=== PATIENT | female | born 1955 | race Caucasian/White ===

== ENCOUNTER 2019-10-18 17:02 | Emergency (ER) | payer BC, MEDICARE ==
[~2019-10-18] VITALS: Ht 162.6 cm; Wt 68.5 kg
[2019-10-18] MEDS ORDERED: LEVO-T25 MCG PO (17:13)
[2019-10-18 18:01] LABS: ABSOLUTE BASOPHILS 0.1 thou/uL (0.0-0.2); ABSOLUTE EOSINOPHILS 0.3 thou/uL (0.0-0.7); ABSOLUTE LYMPHOCYTES 2.7 thou/uL (0.8-5.3); ABSOLUTE MONOCYTES 0.6 thou/uL (0.0-1.2); ABSOLUTE NEUTROPHILS 5.3 thou/uL (1.6-8.1); EOSINOPHILS 3.3 %; HEMATOCRIT 39.4 % (37.0-47.0); HEMOGLOBIN 13.7 gm/dL (12.0-15.0); LYMPHOCYTES 30.2 %; MCHC 34.9 g/dL (28.0-37.0); MCV 88.7 fL (80.0-100.0); MONOCYTES 6.9 %; MPV 8.8 fl. (7.2-11.1); NUCLEATED RBCS 0 /100WBC; PLATELET COUNT* 236 thou/uL (150-400); POLYS 58.6 %; RBC 4.44 mil/uL (4.20-5.00); RDW-CV 12.7 % (10.5-14.5)
[2019-10-18 18:14] LABS: CALCIUM 8.3 mg/dL (8.5-10.1); CREATININE 0.9 mg/dL (0.6-1.3); POTASSIUM 4.6 mmol/L (3.5-5.1)
[2019-10-18 18:19] LABS: APTT 26.2 Seconds (25.0-31.3); PROTIME 10.7 Seconds (9.20-11.50)
[2019-10-18] MEDS ORDERED: VENTOLIN HFA 1818 GM INH (18:25)
[2019-10-18] MEDS ORDERED: ZPAK PO (18:25)
[2019-10-18] MEDS ORDERED: PREDNISONE 20 M20 M1 PO (18:25)
[2019-10-18 18:27] LABS: ALBUMIN 3.2 g/dL (3.4-5.0); CK-MB MASS 0.8 ng/mL (<0.5-3.6); MAGNESIUM 1.9 mg/dL (1.8-2.4); TOTAL BILIRUBIN 0.2 mg/dL (<0.1-1.0); TOTAL PROTEIN 7.3 g/dL (6.4-8.2)
[2019-10-18 18:37] VITALS: BP 120/70
--- NOTE | 2019-10-23 15:00 | EKG ---
[place] [address] ELECTROCARDIOGRAM REPORT Name: SORAYA ROQUE Room: [facility]#: [id number] Admission: 10/18/19 Attend Phys: Discharge: 10/18/19 Date of : 53 Date of Service: 10/18/19 1723 Report #: [id number] THIS REPORT FOR: //name// [facility] ED Test Date: 2019-10-18 Test Time: 17:23:07 Pat Name: SORAYA ROQUE Department: Room: Gender: F Account Coordinator: : 1955 Requested By: Fran Adler Order Number: [id number] MD: Hugh Yeung Measurements Intervals [place] Rate: 71 P: 72 ID: [id number] QRS: 61 QRSD: 80 T: 58 QT: 376 QTc: 409 Interpretive Statements Sinus rhythm No previous ECG available for comparison Electronically Signed On 10-19-2019 10:28:22 HOTEL MANAGER by Hugh Yeung [email or web address] <ELECTRONICALLY SIGNED> By: Hugh Yeung MD, [facility] 10/19/19 1028 22 22 Hugh Yeung MD, FACC /EPI
== END 2019-10-18 18:38 | disposition home or self-care (01) ==
LOC: M.ERS 17:02
PROVIDERS: Family Medicine
DX: J40 Bronchitis, not specified as acute or chronic (principal); Z88.5 Allergy status to narcotic agent; Z88.1 Allergy status to other antibiotic agents; Z90.710 Acquired absence of both cervix and uterus; Z90.49 Acquired absence of other specified parts of digestive tract; Z85.850 Personal history of malignant neoplasm of thyroid